=== PATIENT | male | born 1955 | race Caucasian/White ===

== ENCOUNTER 2020-03-03 08:08 | Emergency (ER) | payer OTHER, SELFPAY ==
--- NOTE | ~2020-03-03 | XR_ITS ---
XR abdomen/kub 1V 03/03/2020 10:05 Indication: Right ureteral stone. Procedure: KUB Comparison: CT dated 03/03/2020 Findings: Bowel gas pattern is nonobstructive. There is a column of contrast in the right renal colle cting system and ureter extending into the pelvis, consistent with obstructing distal ureteral stone. Bladder contains contrast. There is trace residual contrast in the left renal collecting system. Carol vated right diaphragm. Impression: 1: Standing column of contrast in the right renal collecting system and ureter, consistent with obstr ucting distal ureteral stone. Reviewed, dictated and finalized at location A. Impression: 1: Standing column of contrast in the right renal collecting system and ureter, consistent with obstructing distal ureteral stone.
--- NOTE | ~2020-03-03 | CT_ITS ---
EXAMINATION: CT abdomen pelvis w con DATE: 03/03/2020 09:27 INDICATION: Abdominal pain TECHNIQUE: Computed tomography (CT) of the abdomen and pelvis was performed with 100 cc Omnipaque 350 intravenous contrast. The dose-length product was 701.59 mGy-cm. Automated exposure control and iter ative reconstruction technique were employed. COMPARISON: None. FINDINGS: Lung bases are unremarkable. Borderline heart size. No significant pleural or pericardial e ffusion. There is a 3 mm distal right ureteral stone just proximal to the UVJ with mild-moderate right hydrour eteronephrosis. There is right perinephric and periureteral edema. There is mild thickening of the appendix, although there is no significant periappendiceal inflammati on. There are multiple ileocolic lymph nodes, likely reactive. There is atherosclerosis of the aorta without aneurysm. Calcified granulomas of the spleen. The liver, pancreas, adrenal glands and left ki dney are unremarkable. Nonobstructive bowel gas pattern. No free air or free fluid. Moderate lumbar s pondylosis. Grade 1 spondylolisthesis at L5-S1 secondary to spondylolysis. Moderate degenerative felipe ges of the hips. IMPRESSION: 1. Distal right ureteral stone near the UVJ measuring 3 mm with mild-moderate hydronephrosis. There i s associated perinephric and periureteral edema, consistent with obstruction. 2: Thickened appendix without associated periappendiceal inflammation, nonspecific. 3: Mildly enlarged ileocolic lymph nodes, likely reactive. Reviewed, dictated and finalized at location A. IMPRESSION: 1. Distal right ureteral stone near the UVJ measuring 3 mm with mild-moderate h ydronephrosis. There is associated perinephric and periureteral edema, consiste nt with obstruction. 2: Thickened appendix without associated periappendiceal inflammation, nonspeci fic. 3: Mildly enlarged ileocolic lymph nodes, likely reactive.
[2020-03-03 08:16] VITALS: BP 151/88; PULSE 56; RESP 18; TEMP 36.1; O2SAT 100
--- NOTE | 2020-03-03 08:40 | ED.GENADULT ---
HPI - General Adult General Chief complaint: Unspecified Stated complaint: abd pain Time Seen by Provider: 03/03/20 08:15 History of Present Illness HPI narrative: Patient is a 64 y/o male complaining of right sided abdominal pain starting approximately 2-3 hours ago. He state that his pain was 7/10 and dull with no radiation. He states that his pain has decrease since onset and rate it as 2/10. He had some nausea, but no vomiting. He also had some sweating. He denies any fever or diarrhea. Related Data Home Medications Medication Instructions Recorded Confirmed lisinopril 20 mg PO DAILY 03/03/20 pantoprazole 40 mg PO QAM 03/03/20 simvastatin 20 mg PO DAILY 03/03/20 Allergies Allergy/AdvReac Type Severity Reaction Status Date / Time No Known Allergies Allergy Verified 03/03/20 08:19 Review of Systems Constitutional: Constitutional: Reports as per HPI, Denies chills, Reports excessive sweating, Denies fever(s), Denies headache(s) and Denies weakness Eyes: Eyes: Denies blurry vision ENT: Denies headache(s) and Denies neck pain Cardiovascular: Cardiovascular: Denies chest pain and Denies dyspnea Respiratory: Respiratory: Denies cough and Denies dyspnea Gastrointestinal: Gastrointestinal: Reports abdominal pain, Denies diarrhea, Reports nausea and Denies vomiting Genitourinary: Genitourinary: Denies hematuria and Denies dysuria Musculoskeletal: Musculoskeletal: Denies back pain and Denies neck pain Neurologic: Denies headache(s) and Denies weakness PMF Social History Social History Gender identity (if verbalized by the patient): Male Exam Const: General: no acute distress and well developed Orientation/consciousness: oriented to person, oriented to place, oriented to time and patient oriented x3 HENMT: Head: normocephalic Ears: external ears normal General nose exam: Normal external nose present Eyes: General: appearance normal, both eyes and all related structures Conjunctivae: conjunctivae normal Neck: Neck: normal visual inspection and full ROM Chest: Chest palpation & inspection: normal inspection of the chest and no tenderness Resp: Effort & Inspection: normal respiratory effort Auscultation: clear to auscultation bilaterally Cardio: Rate: regular rate Rhythm: regular rhythm GI: GI Palp: No abdominal tenderness and Yes Soft to palpation Skin: General skin exam: normal color and turgor normal Neuro: General: oriented to person, oriented to place, oriented to time and patient oriented x3 Cognition (Neuro): normal cognition Extrem: General: normal to inspection, full ROM and no pedal edema Psych: Appearance: grossly normal Mental Status: mental status grossly normal Affect: normal affect Course Consultations Consultation #1: Discussed with Dr. Valencia, who reviewed CT images, stating appendix is not a concern at this time, although it is somewhat abnormal. Date: 03/03/20 Time: 10:36 Vital Signs Vital signs: Vital Signs Temperature 36.1 C L 03/03/20 08:16 Pulse Rate 56 L 03/03/20 08:16 Respiratory Rate 18 03/03/20 08:16 Blood Pressure 151/88 H 03/03/20 08:16 Pulse Oximetry 100 03/03/20 08:16 Temperature 36.1 C L 03/03/20 08:16 Pulse Rate 56 L 03/03/20 08:16 Respiratory Rate 18 03/03/20 08:16 Blood Pressure 151/88 H 03/03/20 08:16 Pulse Oximetry 100 03/03/20 08:16 Medical Decision Making Vital Signs Vital Signs: Vital Signs Temperature 36.1 C L 03/03/20 08:16 Pulse Rate 56 L 03/03/20 08:16 Respiratory Rate 18 03/03/20 08:16 Blood Pressure 151/88 H 03/03/20 08:16 Pulse Oximetry 100 03/03/20 08:16 Temperature 36.1 C L 03/03/20 08:16 Pulse Rate 56 L 03/03/20 08:16 Respiratory Rate 18 03/03/20 08:16 Blood Pressure 151/88 H 03/03/20 08:16 Pulse Oximetry 100 03/03/20 08:16 Lab Data Result diagrams: 03/03/20 08:33 03/03/20 08:33
[2020-03-03 08:46] LABS: Basophils Absolute Auto 0.1 K/mm3 (0.0-0.1); Basophils Percent Auto 0.5 % (0.2-1.2); Eosinophils Absolute Auto 0.6 K/mm3 (0-0.3); Eosinophils Percent Auto 6.6 % (0-4.4); Hematocrit 41.7 % (42.0-52.0); Hemoglobin 14.3 g/dL (14.0-18.0); Immature Granulocyte Absolute 0.02 K/mm3 (0.00-0.031); Immature Granulocyte Percent A 0.2 % (0-0.5); Lymphocytes Absolute Auto 1.63 K/mm3 (0.9-3.2); Lymphocytes Percent Auto 17.8 % (18.3-44.2); Mean Corpuscular HGB Conc 34.3 g/dl (32-36); Mean Corpuscular Hemoglobin 31.7 pg (26-34); Mean Corpuscular Volume 92.5 fl (80-100); Mean Platelet Volume 9.1 fl (7.4-10.4); Monocytes Absolute Auto 0.6 K/mm3 (0.1-0.6); Monocytes Percent Auto 6.3 % (2.6-8.5); Neutrophils Absolute Auto 6.3 K/mm3 (1.3-6.7); Neutrophils Percent Auto 68.6 % (45.5-73.1); Platelet Count Result 275 k/mm3 (150-375); Red Blood Count 4.51 M/mm3 (4.6-6.20); Red Cell Distribution Width 12.7 % (11.5-14.5); White Blood Count 9.2 K/mm3 (4.5-10.0)
[2020-03-03 08:53] LABS: Add Urine Microscopic? YES; Appearance Urine Clear (Clear); Bilirubin Urine Negative (Negative); Blood Urine 2+ (Negative); Color Urine Yellow (Yellow); Glucose Urine UA Negative (Negative); Ketones Urine Negative (Negative); Leukocyte Esterase Ur Negative LEU/UL (Negative); Mucus Urine Moderate /lpf; Nitrate Urine Negative (Negative); Protein Urine Negative (Negative); RBC Urine >75 /hpf (0-2); Specific Grav Ur 1.019 (1.001-1.035); Urobilinogen Urine Negative mg/dL (<2.0); WBC Urine 0-3 /hpf
[2020-03-03 08:59] LABS: Alanine Aminotransferase 27 U/L (4-50); Albumin Level 4.2 g/dL (3.5-5.1); Alkaline Phosphatase 86 U/L (38-126); Aspartate Amino Transferase 32 U/L (17-59); Bilirubin,Total 0.6 mg/dL (0.2-1.3); Blood Urea Nitrogen 15 mg/dL (9-20); Calcium 8.7 mg/dL (8.4-10.2); Carbon Dioxide 26 mmol/L (22-30); Chloride 105 mmol/L (98-107); Estimated CRCL calculation 84 ml/min; Estimated Glomerular Filt Rate > 60; Glucose 124 mg/dL (75-110); Lipase 72 U/L (23-300); Potassium 4.1 mmol/L (3.4-5.0); Sodium 138 mmol/L (137-145)
[2020-03-03 11:41] VITALS: BP 126/83; PULSE 58; RESP 16; O2SAT 99
== END 2020-03-03 11:44 | disposition home or self-care (01) ==
PROVIDERS: Emergency Provider Emergency Medicine; PCP Family Medicine Adolescent Medicine
DX: N13.2 Hydronephrosis with renal and ureteral calculous obstruction (principal)
CPT/HCPCS: 36415; 74018; 74177; 80053; 81001; 83690; 85025; 99284; Q9967

== ENCOUNTER 2024-08-17 00:16 | Day surgery (SDC) | payer MEDICARE, OTHER, SELFPAY ==
[2024-07-27 13:09] VITALS: BMI 28.8
--- NOTE | 2024-08-16 18:48 | P.PNAN_ITS ---
Anes - Eval Pre Procedure Procedure: Operation Date: 08/17/24 08:00 Proposed Procedures p Colonoscopy - Chester Mcneal MD Date/Time: 08/16/24 18:48 Surgeon: Elizabet Pre Op Diagnosis: hx of colon polyps Patient Data Age: 68 Gender: M Height: 1.78 m Weight: 91 kg Allergies Allergy/AdvReac Type Severity Reaction Status Date / Time No Known Allergies Allergy Verified 07/27/24 13:28 Home Medications Medication Instructions Recorded Confirmed Type Lactobacillus acidophilus 250 100 mmu cells PO EVERY OTHER DAY 04/15/22 07/27/24 History million cell capsule (Probiotic Acidophilus) vit C-vit [id number] capsule 1 cap PO DAILY 04/15/22 07/27/24 History lisinopril 20 mg tablet 20 mg PO DAILY 07/27/24 07/27/24 History simvastatin 20 mg tablet 20 mg PO HS 07/27/24 07/27/24 History Patient hx anesthesia problems: none Family hx anesthesia problems: none Results Review: All pre-operative results and documents have been reviewed as part of the pre-operative evaluation. 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) History of total right knee replacement (TKR) (08/2015) Family History Family History Father Lung cancer Mother Carcinoma of colon Hypertension Sibling Diabetes mellitus Social History Social History (Updated 04/15/22 @ 09:18 by Carlee Vyas MA) Smoking status: Never smoker Second hand tobacco smoke exposure: No Alcohol intake: current Drinks per week: 15 Alcohol use details: Beer Substance use: never Substance use type: does not use Living arrangements: with family Occupation/Education: retired Gender identity (if verbalized by the patient): Male Sexual Orientation (if Verbalized by the Patient): Straight or Heterosexual Spiritual care concerns: No Exam Day of Procedure 08/16/24 18:48
[2024-08-17 06:50] VITALS: BP 129/77; PULSE 64; RESP 18; TEMP 36.1; O2SAT 98; BMI 28.0
[2024-08-17] MEDS: LACTATED RINGERS 1,000 ML 150 ML IV CONT (06:59)
--- NOTE | 2024-08-17 07:20 | P.PNAN_ITS ---
Anes - Eval Final PreProcedure Day of Procedure 08/17/24 07:20 Patient weight: overweight Heart: regular rate and rhythm Lungs: clear to auscultation Airway: Mallampati scale class 1 Neurological: alert and oriented Last oral intake: >/= 8 hours ASA classification: II Emergent: no Anesthetic plan: proceed Anesthesia type and monitoring: general GIVS and standard monitoring Results Review: All pre-operative results and documents have been reviewed as part of the pre- operative evaluation. Informed Consent: The patient's anesthetic plan and its attendant risks and benefits were discussed with the patient/family/POA. Questions were solicited and answers provided to the satisfaction of the patient/family/POA.
--- NOTE | 2024-08-17 07:52 | PM.IMHP ---
H&P: HPI History of Present Illness Date/Time: 08/17/24 07:52 Chief Complaint: History of polyps -family history of colorectal cancer. Narrative: This patient has family history of colorectal cancer. His mother had when she was 80 years old. In addition, patient has a history of colonic polyps, last colonoscopy 5 years ago. He is asymptomatic from a GI standpoint. 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) History of total right knee replacement (TKR) (08/2015) Family History Family History Father Lung cancer Mother Carcinoma of colon Hypertension Sibling Diabetes mellitus Social History Social History (Updated 04/15/22 @ 09:18 by Carlee Vyas MA) Smoking status: Never smoker Second hand tobacco smoke exposure: No Alcohol intake: current Drinks per week: 15 Alcohol use details: Beer Substance use: never Substance use type: does not use Living arrangements: with family Occupation/Education: retired Gender identity (if verbalized by the patient): Male Sexual Orientation (if Verbalized by the Patient): Straight or Heterosexual Spiritual care concerns: No Meds Home Medications and Allergies Home Medications Medication Instructions Recorded Confirmed Type Lactobacillus acidophilus 250 100 mmu cells PO EVERY OTHER DAY 04/15/22 08/17/24 History million cell capsule (Probiotic Acidophilus) vit C-vit G-[id number] capsule 1 cap PO DAILY 04/15/22 08/17/24 History lisinopril 20 mg tablet 20 mg PO DAILY 07/27/24 08/17/24 History simvastatin 20 mg tablet 20 mg PO HS 07/27/24 08/17/24 History Allergies Allergy/AdvReac Type Severity Reaction Status Date / Time No Known Allergies Allergy Verified 08/17/24 06:48 Vital Signs Vital Signs - 24 hr 08/17/24 06:50 Temperature 97.0 F L Pulse Rate 64 Respiratory Rate 18 Blood Pressure 129/77 Pulse Oximetry 98 Oxygen Delivery Room Air Exam Const: General: cooperative and healthy appearing Resp: Effort & Inspection: normal respiratory effort and able to speak in complete sentences Auscultation: clear to auscultation bilaterally Cardio: Rate: regular rate Rhythm: regular rhythm GI: Inspection: normal to inspection GI Palp: No No hepatosplenomegaly present Auscultation: normal bowel sounds Rectal Exam: deferred Skin: General skin exam: normal color Psych: Appearance: grossly normal Mental Status: mental status grossly normal Assessment and Plan Assessment and plan (1) History of colonic polyps: Code(s): Z86.0100 - Personal history of colon polyps, unspecified Status: Acute Assessment and Plan: The patient is deemed a good candidate for the procedure. Consent signed. Will proceed.
[2024-08-17 08:27] VITALS: BP 109/75; PULSE 80; RESP 20; O2SAT 96
[2024-08-17 08:37] VITALS: BP 111/75; PULSE 64; RESP 17; O2SAT 99
[2024-08-17 08:47] VITALS: BP 114/78; PULSE 57; RESP 22; O2SAT 99
== END 2024-08-17 09:03 | disposition home or self-care (01) ==
PROVIDERS: PCP Family Medicine Adolescent Medicine; Visit Provider Internal Medicine Gastroenterology
PROC: 0DJD8ZZ Inspection of Lower Intestinal Tract, Via Natural or Artificial Opening Endoscopic (ICD-10-PCS; CPT 45378; principal; 2024-08-17 08:00)
DX: Z12.11 Encounter for screening for malignant neoplasm of colon (principal); D12.2 Benign neoplasm of ascending colon; K63.5 Polyp of colon; K57.30 Diverticulosis of large intestine without perforation or abscess without bleeding; K64.8 Other hemorrhoids; Z80.0 Family history of malignant neoplasm of digestive organs; I10 Essential (primary) hypertension; E78.5 Hyperlipidemia, unspecified
CPT/HCPCS: 45385; 88305; J2003; J2704; J7120